=== PATIENT | female | born 1985 | race Caucasian/White ===

== ENCOUNTER 2016-11-01 08:51 | Emergency (ER) | payer OTHER ==
--- NOTE | 2016-11-01 10:17 | DIAGNOSTIC IMAGING REPORT ---
PROCEDURE: XR HAND 3 OR 4 VIEWS - RIGHT INDICATION: TRAUMA/INJURY TECHNIQUE: Four views. COMPARISON: None. FINDINGS: Osseous structures and joint spaces are normal. IMPRESSION: 1. Normal right hand.
--- NOTE | 2016-11-01 10:47 | ED CLINICAL REPORT ---
Clinical Report - Physicians/Mid Levels [facility] [address] [place] [address] 11/01/2016 8:53 Patient: HALLE GASCA Time Seen: 09:18. Arrived- By private vehicle. Historian- patient. HISTORY OF PRESENT ILLNESS Chief Complaint: Injury to the right thumb. The injury happened just prior to arrival. Occurred on a street. The patient sustained a crush injury- caught hand in door. Patient is experiencing moderate pain. Patient denies injury to the head or neck. No other injury. REVIEW OF SYSTEMS The patient sustained a laceration. She has had swelling. No tingling, numbness, weakness or foreign body. PAST HISTORY Primary physician: Fritz ([facility]) SURGERIES: Bladder . Cyst removed from head. Tubal Ligation. The patient's dominant hand is the right. Tetanus immunization status is unknown. Anxiety. Depression. SOCIAL HISTORY Smoker- current status unknown. History of drug use: marijuana. No alcohol use. ADDITIONAL NOTES The nursing notes have been reviewed. PHYSICAL EXAM Vital Signs: 11/01/2016 09:02 BP: 123/86. HR: 124. RR: 18. O2 saturation: 98%. Temp: 98 F. Pain level now: 9/10. Appearance: Alert. Anxious. Patient in moderate distress. Head: Head atraumatic. Eyes: Eyes normal inspection. No scleral icterus or pale conjunctivae. Neck: Normal inspection. Neck supple. CVS: Normal heart rate and rhythm. Heart sounds normal. Pulses normal. Respiratory: No respiratory distress. Breath sounds normal. Skin: Skin warm and dry. (right thumb abrasion and contusion). Extremities: Tip of right thumb: severe tenderness, mild swelling and superficial laceration, which involves the nail bed. No foreign body. No laceration involving nail fold, subungual hematoma, nail avulsion, exposed bone or loss of the nail bed on the right thumb. No tip amputation of the right thumb. No wrist injury. Extremities otherwise negative. Neuro, Vascular and Tendons: Vascular status intact. Sensation intact. Motor intact. Tendon function intact. Neuro: Oriented X 3. No motor deficit. LABS, X-RAYS, AND EKG Rt UE Digits X-ray: No fracture. Normal alignment. No bony lesion. Views: AP, lateral and oblique. Technique: good. The X-rays were interpreted contemporaneously by me. PROGRESS AND PROCEDURES Course of Care: Ibuprofen 400 mg PO given. Zofran 4 mg ODT PO given. Discussed closure options with pt. Nail is serving to pull wound edges together with good approximation. Pt does not want the nail removed. No fracture or fb on x-ray. Wound adhesive applied to nail to assure that nail serves as splint. Pt is currently taking antibiotics. 11/01/2016 10:52 BP: 108/70. HR: 62. RR: 18. O2 saturation: 95%. Temp: 98.4 F. Pain level now: 03/09. Patient/family counseled. Old ED records reviewed. Disposition: Discharged. Condition: stable and improved. CLINICAL IMPRESSION Abrasion to the right thumb. Crush injury to the right thumb. Chronic substance abuse- tobacco (cigarettes), marijuana with anxiety. INSTRUCTIONS Apply ice. Elevate affected areas above chest level. Wear aluminum splint until better. Limit use of your right hand until better. Do not work with hand today. Do not work for two days. Do not smoke. Seek medical help to quit smoking. Warnings: INFECTION: Watch for signs of infection (increasing heat and redness, pus-like drainage, swelling, or increased pain). Return or see your doctor if these signs occur. TETANUS: You were given a tetanus shot during your visit. Make a note for future reference. CONTROLLED SUBSTANCE WARNINGS. Further evaluation is necessary. It is very important to follow up with a physician. GENERAL WARNINGS: Return or contact your physician immediately if your condition worsens or changes unexpectedly, if not improving as expected, or if other problems arise. Your Current Medications: CONTINUE TAKING THE FOLLOWING MEDICATIONS: Cefdinir Oral : 300 mg 2x a day, Started: 10-17-2016. Xanax Oral : 0.25 mg. Zoloft Oral : 75 daily. Prescription Medications: Hydrocodone/APAP 5mg / 325mg: take 1-2 orally every 8 hours as needed for pain. Dispense ten (10). OTC Medications: Acetaminophen (available over the counter): take according to label instructions. Motrin (available over the counter): take according to label instructions. Follow-up with: [facility], , , [address], , [place], [address] Follow up in about four days. (Electronically signed by Reji Carrizales DO 11/01/2016 11:41)
--- NOTE | 2016-11-01 10:47 | ED CLINICAL REPORT ---
Clinical Report - Physicians/Mid Levels [facility] [address] [place] [address] 11/01/2016 8:53 Patient: HALLE GASCA Time Seen: 09:18. Arrived- By private vehicle. Historian- patient. HISTORY OF PRESENT ILLNESS Chief Complaint: Injury to the right thumb. The injury happened just prior to arrival. Occurred on a street. The patient sustained a crush injury- caught hand in door. Patient is experiencing moderate pain. Patient denies injury to the head or neck. No other injury. REVIEW OF SYSTEMS The patient sustained a laceration. She has had swelling. No tingling, numbness, weakness or foreign body. PAST HISTORY Primary physician: Fritz ([facility]) SURGERIES: Bladder . Cyst removed from head. Tubal Ligation. The patient's dominant hand is the right. Tetanus immunization status is unknown. Anxiety. Depression. SOCIAL HISTORY Smoker- current status unknown. History of drug use: marijuana. No alcohol use. ADDITIONAL NOTES The nursing notes have been reviewed. PHYSICAL EXAM Vital Signs: 11/01/2016 09:02 BP: 123/86. HR: 124. RR: 18. O2 saturation: 98%. Temp: 98 F. Pain level now: 9/10. Appearance: Alert. Anxious. Patient in moderate distress. Head: Head atraumatic. Eyes: Eyes normal inspection. No scleral icterus or pale conjunctivae. Neck: Normal inspection. Neck supple. CVS: Normal heart rate and rhythm. Heart sounds normal. Pulses normal. Respiratory: No respiratory distress. Breath sounds normal. Skin: Skin warm and dry. (right thumb abrasion and contusion). Extremities: Tip of right thumb: severe tenderness, mild swelling and superficial laceration, which involves the nail bed. No foreign body. No laceration involving nail fold, subungual hematoma, nail avulsion, exposed bone or loss of the nail bed on the right thumb. No tip amputation of the right thumb. No wrist injury. Extremities otherwise negative. Neuro, Vascular and Tendons: Vascular status intact. Sensation intact. Motor intact. Tendon function intact. Neuro: Oriented X 3. No motor deficit. LABS, X-RAYS, AND EKG Rt UE Digits X-ray: No fracture. Normal alignment. No bony lesion. Views: AP, lateral and oblique. Technique: good. The X-rays were interpreted contemporaneously by me. PROGRESS AND PROCEDURES Course of Care: Ibuprofen 400 mg PO given. Zofran 4 mg ODT PO given. Discussed closure options with pt. Nail is serving to pull wound edges together with good approximation. Pt does not want the nail removed. No fracture or fb on x-ray. Wound adhesive applied to nail to assure that nail serves as splint. Pt is currently taking antibiotics. 11/01/2016 10:52 BP: 108/70. HR: 62. RR: 18. O2 saturation: 95%. Temp: 98.4 F. Pain level now: 03/09. Patient/family counseled. Old ED records reviewed. Disposition: Discharged. Condition: stable and improved. CLINICAL IMPRESSION Abrasion to the right thumb. Crush injury to the right thumb. Chronic substance abuse- tobacco (cigarettes), marijuana with anxiety. INSTRUCTIONS Apply ice. Elevate affected areas above chest level. Wear aluminum splint until better. Limit use of your right hand until better. Do not work with hand today. Do not work for two days. Do not smoke. Seek medical help to quit smoking. Warnings: INFECTION: Watch for signs of infection (increasing heat and redness, pus-like drainage, swelling, or increased pain). Return or see your doctor if these signs occur. TETANUS: You were given a tetanus shot during your visit. Make a note for future reference. CONTROLLED SUBSTANCE WARNINGS. Further evaluation is necessary. It is very important to follow up with a physician. GENERAL WARNINGS: Return or contact your physician immediately if your condition worsens or changes unexpectedly, if not improving as expected, or if other problems arise. Your Current Medications: CONTINUE TAKING THE FOLLOWING MEDICATIONS: Cefdinir Oral : 300 mg 2x a day, Started: 10-17-2016. Xanax Oral : 0.25 mg. Zoloft Oral : 75 daily. Prescription Medications: Hydrocodone/APAP 5mg / 325mg: take 1-2 orally every 8 hours as needed for pain. Dispense ten (10). OTC Medications: Acetaminophen (available over the counter): take according to label instructions. Motrin (available over the counter): take according to label instructions. Follow-up with: [facility], , , [address], , [place], [address] Follow up in about four days. (Electronically signed by Reji Carrizales DO 11/01/2016 11:41)
--- NOTE | 2016-11-01 10:47 | ED ORDER SUMMARY ---
..... Patient: HALLE GASCA OrderSheet [facility] VisitID: [id number] [address] [place] [address] 31y, F Registration Date/Time: 11/01/2016 ORDER SHEET Weight: 59.4 kg (stated) Allergies: Amoxicillin, Penicillins GENERAL ORDERS: Hand 3 or 4V Right Urgent (09:24 [facility]/01/2016 [facility] (Ack 9:26 LTapper) Dress Wounds (clean and dress (tube guaze) thumb - no bacitracin; place dressing after wound adhesive) (09:50 11/01/2016 [facility]) Splint (Finger) (Right) (Thumb) (Aluminum Foam) (bend end of alumafoam splint over the end of the thumb to serve as a shield) (09:51 11/01/2016 [facility]) MEDICATION ORDERS: Ibuprofen PO 400 mg (NOW) (10:15 11/01/2016 [facility]) (Ack 10:56 SRoberts R.N.) Zofran ODT PO 4 mg (NOW) (10:15 11/01/2016 [facility]) (Ack 10:56 SRoberts R.N.) Tdap IM 0.5 mL (NOW, per protocol) (10:43 11/01/2016 [facility] (10:50 MCook R.N.) IV FLUIDS: ORDER SHEET NOTES: [Electronically signed by Errol Conley R.N. (11:25 11/01/2016)] [Electronically signed by Reji Carrizales DO (11:41 11/01/2016)] [Electronically locked/signed by Errol Conley R.N. (11:25 11/01/2016)]
--- NOTE | 2016-11-01 10:47 | ED NURSING NOTES ---
Clinical Report - Nurses [facility] [address] [place] [address] 11/01/2016 8:53 Patient: HALLE GASCA TRIAGE Triage time 09:02. Acuity: LEVEL 3. Chief Complaint: INJURY TO THE RIGHT THUMB. Alert. No acute distress. NAVID COMA SCORE: [place] Coma Scale: 15- eyes open spontaneously (4); best verbal response- oriented x 4 (5); best motor response- obeys commands (6). --09:12 Eusebia Reveles R.N. 09:02 11/01/16. BP: 123/86. HR: 124. RR: 18. O2 saturation: 98% on room air. Temp: 98 F (oral). Pain level now: 06/09. --09:12 Eusebia Reveles R.N. Weight: 59.4 kg stated. Height/Length: 64 inches Per Patient. BMI: 22.5. --09:09 Eusebia Reveles R.N. Medications Zoloft Oral 75, daily. --09:06 Eusebia Reveles R.N. Xanax Oral 0.25 mg. --09:06 Eusebia Reveles R.N. Cefdinir Oral 300 mg, 2x a day, started 10-17-2016. --09:06 Eusebia Reveles R.N. Medication/allergy information source: the patient. --09:12 Eusebia Reveles R.N. Allergies Amoxicillin. Penicillins. --09:08 Eusebia Reveles R.N. History Arrived by private vehicle. Historian: patient. Unaccompanied. Primary physician (Fritz). This occurred just prior to arrival. Mechanism of injury: a single blow (car door). PAST MEDICAL HX: Tetanus status: unknown. Last normal menstrual period- Sep 2016. SOCIAL HX: Heavy tobacco smoker- less than 1 pack per day. History of drug use: marijuana. No alcohol use. FALL RISK ASSESSMENT: Fall risk assessment completed. No fall risk identified. FUNCTIONAL ASSESSMENT: Functional assessment: no impairments noted. LEARNING NEEDS ASSESSMENT: The learning needs assessment revealed no barriers. --09:12 Eusebia Reveles R.N. PROBLEMS: Sinusitis. Depression. --09: Eusebia Reveles R.N. ADDITIONAL SURGERIES: Bladder . Cyst removed from head. Tubal Ligation. --09: Eusebia Reveles R.N. Assessment GENERAL / NEURO / PSYCH: Alert. Oriented X 4. Appears in no acute distress. Patient appears calm and cooperative. RESPIRATORY: Respirations not labored. SKIN: Skin is warm and dry. --09:12 Eusebia Reveles R.N. Interventions <<STRICKEN ENTRY-- ID band on patient. She was not taken to a treatment room. --09:12 Eusebia Reveles R.N. --END STRIKE>> Correction --09:12 Eusebia Reveles R.N. ID band on patient. To treatment room. --09:13 Eusebia Reveles R.N. PHYSICAL ASSESSMENT 09:17 11/01/16. Ambulatory to room. GENERAL / NEURO / PSYCH: Oriented X 4. Alert. Appears in no acute distress. SKIN: Skin is warm and dry. ( acrylic nail split, blood noted under tip of nail). --09:17 Esuebia Reveles R.N. NURSING PROGRESS NOTES 09:17 11/01/16. Cold pack applied. Call light placed in reach. Side rails up x 1. Bed placed in lowest position. Brakes of bed on. --09:17 Eusebia Reveles R.N. Wound cleansed with sterile saline and Hibiclens. --09:54 Errol Conley R.N. 10:49 11/01/2016 TDAP IM 0.5 mL given. (Lot#: [id number], expiration date: 11/01/2016, Senior Pharmacy Technician: sanofi pasteur). Given in the right deltoid. Allergies verified and confirmed 5 rights. Vaccine information statement provided to the patient. --10:50 Errol Conley R.N. ( Administered Tdap vaccine. Pt information sheet given. Pt tolerated well.). --10:54 Errol Conley R.N. Applied bulky dressing. Secured with tube gauze. Aluminum-foam finger splint applied to right thumb by tech. Distal pulses intact, sensation intact and motor within normal limits. --10:57 Shun Abdalla 11:00 11/01/16. Overall patient status is improved- she states feels better. GENERAL / NEURO / PSYCH: The patient reports pain that is located in the right thumb. Denies numbness or tingling. Alert. Oriented X 4. GI / : Denies nausea or vomiting. SKIN: Skin is warm and dry. --11:05 Errol Conley R.N. DISPOSITION / DISCHARGE 10:52 11/01/16. BP: 108/70. HR: 62. RR: 18. O2 saturation: 95% on room air. Temp: 98.4 F. Pain level now: 03/09. --10:53 Errol Conley R.N. Condition at departure: improved. The goals identified in the patient's plan of care were met. No learning barriers present. Discharge instructions provided and reviewed with the patient. Reviewed medication(s) side effects and precautions information. Prescription(s) given to the patient. Reviewed immunizations and splint care instructions. Reviewed need to stop smoking. Activity restrictions (minimal use of injured extremity) reviewed. Patient verbalized understanding. Written instructions provided in Fijian. The patient was discharged by the physician. She was discharged home and accompanied by shipwright helper. She left the Emergency Department ambulatory and via private vehicle. Fish Filleter driving. ( Patient ready for discharge. Stated that her ride is not here yet and that she will wait in the hospital waiting room until he comes due to report of "edible" use prior to ER admission.). --11:05 Errol Conley R.N. Departure time: 11:05 Nov 01 2016. --11:05 Errol Conley R.N. Locked/Released at 11/01/2016 11:25 by Errol Conley R.N.
--- NOTE | 2016-11-01 10:47 | ED ORDER SUMMARY ---
..... Patient: HALLE GASCA OrderSheet [facility] VisitID: [id number] [address] [place] [address] 31y, F Registration Date/Time: 11/01/2016 ORDER SHEET Weight: 59.4 kg (stated) Allergies: Amoxicillin, Penicillins GENERAL ORDERS: Hand 3 or 4V Right Urgent (09:24 11/01/2016 [facility] (Ack 9:26 LTapper) Dress Wounds (clean and dress (tube guaze) thumb - no bacitracin; place dressing after wound adhesive) (09:50 11/01/2016 [facility]) Splint (Finger) (Right) (Thumb) (Aluminum Foam) (bend end of alumafoam splint over the end of the thumb to serve as a shield) (09:51 11/01/2016 [facility]) MEDICATION ORDERS: Ibuprofen PO 400 mg (NOW) (10:15 11/01/2016 [facility]) (Ack 10:56 SRoberts R.N.) Zofran ODT PO 4 mg (NOW) (10:15 11/01/2016 [facility]) (Ack 10:56 SRoberts R.N.) Tdap IM 0.5 mL (NOW, per protocol) (10:43 11/01/2016 [facility] (10:50 MCook R.N.) IV FLUIDS: ORDER SHEET NOTES: [Electronically signed by Errol Conley R.N. (11:25 11/01/2016)] [Electronically signed by Reji Carrizales DO (11:41 11/01/2016)] [Electronically locked/signed by Errol Conley R.N. (11:25 11/01/2016)]
--- NOTE | 2016-11-01 10:47 | ED NURSING NOTES ---
Clinical Report - Nurses [facility] [address] [place] [address] 11/01/2016 8:53 Patient: HALLE GASCA TRIAGE Triage time 09:02. Acuity: LEVEL 3. Chief Complaint: INJURY TO THE RIGHT THUMB. Alert. No acute distress. NAVID COMA SCORE: [place] Coma Scale: 15- eyes open spontaneously (4); best verbal response- oriented x 4 (5); best motor response- obeys commands (6). --09:12 Eusebia Reveles R.N. 09:02 11/01/16. BP: 123/86. HR: 124. RR: 18. O2 saturation: 98% on room air. Temp: 98 F (oral). Pain level now: 06/09. --09:12 Eusebia Reveles R.N. Weight: 59.4 kg stated. Height/Length: 64 inches Per Patient. BMI: 22.5. --09:09 Eusebia Reveles R.N. Medications Zoloft Oral 75, daily. --09:06 Eusebia Reveles R.N. Xanax Oral 0.25 mg. --09:06 Eusebia Reveles R.N. Cefdinir Oral 300 mg, 2x a day, started 10-17-2016. --09:06 Eusebia Reveles R.N. Medication/allergy information source: the patient. --09:12 Eusebia Reveles R.N. Allergies Amoxicillin. Penicillins. --09:08 Eusebia Reveles R.N. History Arrived by private vehicle. Historian: patient. Unaccompanied. Primary physician (Fritz). This occurred just prior to arrival. Mechanism of injury: a single blow (car door). PAST MEDICAL HX: Tetanus status: unknown. Last normal menstrual period- Sep 2016. SOCIAL HX: Heavy tobacco smoker- less than 1 pack per day. History of drug use: marijuana. No alcohol use. FALL RISK ASSESSMENT: Fall risk assessment completed. No fall risk identified. FUNCTIONAL ASSESSMENT: Functional assessment: no impairments noted. LEARNING NEEDS ASSESSMENT: The learning needs assessment revealed no barriers. --09:12 Eusebia Reveles R.N. PROBLEMS: Sinusitis. Depression. --09: Eusebia Reveles R.N. ADDITIONAL SURGERIES: Bladder . Cyst removed from head. Tubal Ligation. --09: Eusebia Reveles R.N. Assessment GENERAL / NEURO / PSYCH: Alert. Oriented X 4. Appears in no acute distress. Patient appears calm and cooperative. RESPIRATORY: Respirations not labored. SKIN: Skin is warm and dry. --09:12 Eusebia Reveles R.N. Interventions <<STRICKEN ENTRY-- ID band on patient. She was not taken to a treatment room. --09:12 Eusebia Reveles R.N. --END STRIKE>> Correction --09:12 Eusebia Reveles R.N. ID band on patient. To treatment room. --09:13 Eusebia Reveles R.N. PHYSICAL ASSESSMENT 09:17 11/01/16. Ambulatory to room. GENERAL / NEURO / PSYCH: Oriented X 4. Alert. Appears in no acute distress. SKIN: Skin is warm and dry. ( acrylic nail split, blood noted under tip of nail). --09:17 Eusebia Reveles R.N. NURSING PROGRESS NOTES 09:17 11/01/16. Cold pack applied. Call light placed in reach. Side rails up x 1. Bed placed in lowest position. Brakes of bed on. --09:17 Eusebia Reveles R.N. Wound cleansed with sterile saline and Hibiclens. --09:54 Errol Conley R.N. 10:49 11/01/2016 TDAP IM 0.5 mL given. (Lot#: [id number], expiration date: 11/01/2016, Generator Switchboard Operator: sanofi pasteur). Given in the right deltoid. Allergies verified and confirmed 5 rights. Vaccine information statement provided to the patient. --10:50 Errol Conley R.N. ( Administered Tdap vaccine. Pt information sheet given. Pt tolerated well.). --10:54 Errol Conley R.N. Applied bulky dressing. Secured with tube gauze. Aluminum-foam finger splint applied to right thumb by tech. Distal pulses intact, sensation intact and motor within normal limits. --10:57 Shun Abdalla 11:00 11/01/16. Overall patient status is improved- she states feels better. GENERAL / NEURO / PSYCH: The patient reports pain that is located in the right thumb. Denies numbness or tingling. Alert. Oriented X 4. GI / : Denies nausea or vomiting. SKIN: Skin is warm and dry. --11:05 Errol Conley R.N. DISPOSITION / DISCHARGE 10:52 11/01/16. BP: 108/70. HR: 62. RR: 18. O2 saturation: 95% on room air. Temp: 98.4 F. Pain level now: 03/09. --10:53 Errol Conley R.N. Condition at departure: improved. The goals identified in the patient's plan of care were met. No learning barriers present. Discharge instructions provided and reviewed with the patient. Reviewed medication(s) side effects and precautions information. Prescription(s) given to the patient. Reviewed immunizations and splint care instructions. Reviewed need to stop smoking. Activity restrictions (minimal use of injured extremity) reviewed. Patient verbalized understanding. Written instructions provided in [place]. The patient was discharged by the physician. She was discharged home and accompanied by security alarm technician. She left the Emergency Department ambulatory and via private vehicle. Contact Lens Lathe Operator driving. ( Patient ready for discharge. Stated that her ride is not here yet and that she will wait in the hospital waiting room until he comes due to report of "edible" use prior to ER admission.). --11:05 Errol Conley R.N. Departure time: 11:05 Nov 01 2016. --11:05 Errol Conley R.N. Locked/Released at 11/01/2016 11:25 by Errol Conley R.N.
--- NOTE | 2016-11-01 11:41 | ED MAR SUMMARY ---
..... Medication Administration Record [facility] [address] [place] [address] Patient: HALLE GASCA Visit ID: [id number] 31y, F Weight: 59.4 kg Height/Length: 64 in BMI: 22.5 ALLERGIES: Amoxicillin, Penicillins Given 10:49 11/01/2016 Errol Conley R.N. Medication Administered: TDAP [IM], Dose: 0.5 mL IM. Medication Ordered: Tdap IM 0.5 mL (NOW, per protocol).
--- NOTE | 2016-11-01 11:41 | ED MAR SUMMARY ---
..... Medication Administration Record [facility] [address] [place] [place] [address] Patient: HALLE GASCA Visit ID: [id number] 31y, F Weight: 59.4 kg Height/Length: 64 in BMI: 22.5 ALLERGIES: Amoxicillin, Penicillins Given 10:49 11/01/2016 Errol Conley R.N. Medication Administered: TDAP [IM], Dose: 0.5 mL IM. Medication Ordered: Tdap IM 0.5 mL (NOW, per protocol).
--- NOTE | 2016-11-01 11:41 | ED MED RECONCILIATION SUMMARY ---
Patient: HALLE GASCA Medication Reconciliation Report [facility] VisitID: [id number] [address] [place] [address] 31y, F Registration Date/Time: 11/01/2016 Weight: 59.4 kg Height/Length: 64 in. BMI: 22.5 ALLERGIES: Amoxicillin, Penicillins The patient's Home Medications are listed below: CONTINUE TAKING THE FOLLOWING MEDICATIONS: Cefdinir Oral 300 mg, 2x a day Xanax Oral 0.25 mg Zoloft Oral 75, daily The source(s) of the original Home Medication information: patient The following Medications were given to the patient in the Emergency Department: TDAP [IM] IM 0.5 mL, administered: 11/01/2016 10:49:00 AM The following Medications were prescribed to the patient: Acetaminophen (available over the counter): take according to label instructions. -- Reji Carrizales DO Motrin (available over the counter): take according to label instructions. -- Reji Carrizales DO Hydrocodone/APAP 5mg / 325mg: take 1-2 orally every 8 hours as needed for pain. Dispense ten (10). -- Reji Carrizales DO
--- NOTE | 2016-11-01 11:41 | ED DISCHARGE INSTRUCTIONS ---
Patient: HALLE GASCA General Instructions [facility] VisitID: [id number] [address] [place] [address] 31y, F Registration Date/Time: 11/01/2016 Abrasion to the right thumb. Crush injury to the right thumb. Chronic substance abuse- tobacco (cigarettes), marijuana with anxiety. INSTRUCTIONS Apply ice. Elevate affected areas above chest level. Wear aluminum splint until better. Limit use of your right hand until better. Do not work with hand today. Do not work for two days. Do not smoke. Seek medical help to quit smoking. Warnings: INFECTION: Watch for signs of infection (increasing heat and redness, pus-like drainage, swelling, or increased pain). Return or see your doctor if these signs occur. TETANUS: You were given a tetanus shot during your visit. Make a note for future reference. CONTROLLED SUBSTANCE WARNINGS. Further evaluation is necessary. It is very important to follow up with a physician. GENERAL WARNINGS: Return or contact your physician immediately if your condition worsens or changes unexpectedly, if not improving as expected, or if other problems arise. Your Current Medications: CONTINUE TAKING THE FOLLOWING MEDICATIONS: Cefdinir Oral : 300 mg 2x a day, Started: 10-17-2016. Xanax Oral : 0.25 mg. Zoloft Oral : 75 daily. Prescription Medications: Hydrocodone/APAP 5mg / 325mg: take 1-2 orally every 8 hours as needed for pain. Dispense ten (10). OTC Medications: Acetaminophen (available over the counter): take according to label instructions. Motrin (available over the counter): take according to label instructions. Follow-up with: [facility], , , [address], , [place], [id number] Follow up in about four days. ADDITIONAL INFORMATION Abrasions Abrasions are skin scrapes. Their treatment depends on how large and deep the abrasion is. Home Care: If you were given a bandage, change it once a day. If your bandage sticks to the wound, soak it in warm water until it loosens. Wash the area with soap and water to remove all the cream/ointment. You may do this in a sink, under a tub faucet or shower. Rinse off the soap and pat dry with a clean towel. Reapply cream/ointment according to your doctor's instructions. This will prevent infection and help prevent the bandage from sticking. Cover the wound with a fresh non-stick bandage (Telfa). Repeat steps 1 to 4 daily, or as directed by your doctor. If the bandage becomes wet or dirty, change it as soon as possible. You may use acetaminophen (Tylenol) or ibuprofen (Motrin, Advil) to control pain, unless another pain medicine was prescribed. [ NOTE : If you have chronic liver or kidney disease or ever had a stomach ulcer or GI bleeding, talk with your doctor before using these medicines.] Do not use ibuprofen in children under six months of age. Follow Up with your physician or this facility as directed by our staff. Most skin wounds heal within ten days. However, an infection may occur despite proper treatment. Therefore, look for the early signs of infection listed below. Get Prompt Medical Attention if any of the following occur: Increasing pain in the wound Increasing redness or swelling Pus coming from the wound Fever of 100.4F (38C) or higher, or as directed by your healthcare provider Crush Injury: Hand [No Fx] You have a CRUSH INJURY of your HAND. This causes local pain, swelling and sometimes bruising. There are no broken bones. This injury may take from a few days to a few weeks to heal. If the FINGERNAIL has been severely injured, it may fall off in 1-2 weeks. A new one will usually start to grow back within a month. Home Care: Keep your hand elevated to reduce pain and swelling. When sitting or lying down elevate your arm above the level of your heart. You can do this by placing your arm on a pillow that rests on your chest or on a pillow at your side. This is most important during the first 48 hours after injury. Apply an ice pack (ice cubes in a plastic bag, wrapped in a towel) over the injured area for 20 minutes every 1-2 hours the first day for pain relief. Continue this 3-4 times a day until the pain and swelling goes away. You may use acetaminophen (Tylenol) or ibuprofen (Motrin, Advil) to control pain, unless another pain medicine was prescribed. [ NOTE : If you have chronic liver or kidney disease or ever had a stomach ulcer or GI bleeding, talk with your doctor before using these medicines.] Keep the splint/cast dry at all times. Bathe with your splint/cast well out of the water, protected with a large plastic bag, rubber-banded at the top end. If a fiberglass cast or splint gets wet, you can dry it with a hair-dryer. Follow Up with your doctor as advised if you are not starting to improve within the next THREE days. [NOTE: If X-rays were taken, they will be reviewed by a radiologist. You will be notified of any new findings that may affect your care.] Get Prompt Medical Attention if any of the following occur: The plaster cast or splint becomes wet or soft The fiberglass cast or splint remains wet for more than 24 hours Increased tightness or pain under the cast or splint Fingers become swollen, cold, blue, numb or tingly Redness, warmth, swelling, drainage from the wound, or foul odor from a cast or splint Fever of 100.4F(38C) or higher, or as directed by your healthcare provider Marijuana Abuse Marijuana is the most widely used illegal drug in the [place]. It is called by various names such as pot, weed, blunts, grass, reefer, ganja, hash, hashish. It is usually smoked but can be mixed with foods or brewed as a tea. It is sometimes sold with PCP (Víctor Dust) or amphetamine mixed in it. These drugs can cause other harmful side effects. Marijuana can cause the following effects: Changes in mood (stimulated, happy, drowsy, depressed, paranoid) Hallucinations Increased heart rate and blood pressure Increased appetite Time distortion, difficulty concentrating, impaired memory Lung damage (similar to cigarettes with chronic cough, wheezing, frequent colds and bronchitis) You can become psychologically dependent on marijuana. That means the craving to use the drug is emotional or psychological rather than due to physical withdrawal. Is Marijuana Running Your Life? Here are some of the signs: Relying on marijuana to feel good, forget problems, deal with stress or to relax Wanting to be alone most of the time or only with others who use drugs Losing interest in things that used to be important Changes in school or job performance or attendance Spending a lot of time thinking about how to get marijuana Stealing or selling your things so you can buy marijuana Unable to stop using even though you may want to quit Increasing anxiety, anger,or depression Sleeping too much, changes in eating habits (weight loss or gain) Needing to use more to get the same effect Home Care Once you have become addicted to any drug, quitting is hard to do. Most people find they can't quit without help. So, dont try to do this alone. Talk to someone you trust who can support you. Seek professional help. Avoid people and places where drugs are used. That only increases the temptation to use. Follow Up with your doctor or as advised by our staff. For more information or a referral to a treatment center in your area, contact: Your local mental health center or the National Alcohol and Substance Abuse Information Center (975)-948-0217 www.addictioncareCallApp.[employer] National [place] on Alcoholism and Drug Dependence 728-693-AVHN www.ncadd.org Marijuana Anonymous 015-565-8603 www.marijuana-anonymous.org Get Prompt Medical Attention if any of the following occur: You feel extreme depression, fear, anxiety, or anger toward yourself or others You feel out of control You feel that you may try to harm yourself or another How To Quit Smoking Smoking is one of the hardest habits to break. About half of all those who have ever smoked have been able to quit, and most of those (about 70%) who still smoke want to quit. Here are some of the best ways to stop smoking. Keep Trying: It takes most smokers about 8 tries before they are finally able to fully quit. So, the more often you try and fail, the better your chance of quitting the next time! So, don't give up! Go Cold [place]: Most ex-smokers quit cold turkey. Trying to cut back gradually doesn't seem to work as well, perhaps because it continues the smoking habit. Also, it is possible to fool yourself by inhaling more while smoking fewer cigarettes. This results in the same amount of nicotine in your body! Get Support: Support programs can make an important difference, especially for the heavy smoker. These groups offer lectures, methods to change your behavior and peer support. Call the free national Quitline for more information. 567-RXZZ-JKI (265-440-5366). Low-cost or free programs are offered by many hospitals, local chapters of the [employer] (070-802-0633) and the [employer] (855-832-6302). Support at home is important too. Non-smokers can help by offering praise and encouragement. If the smoker fails to quit, encourage them to try again! Bpcd-[id number]-[id number] Medicines: For those who can't quit on their own, Nicotine Replacement Therapy (NRT) may make quitting much easier. Certain aids such as the nicotine patch, gum and lozenge are available without a prescription. However, it is best to use these under the guidance of your doctor. The skin patch provides a steady supply of nicotine to the body. Nicotine gum and lozenge gives temporary bursts of low levels of nicotine. Both methods take the edge off the craving for cigarettes. WARNING: If you feel symptoms of nicotine overdose, such as nausea, vomiting, dizziness, weakness, or fast heartbeat, stop using these and see your doctor. Prescription Medicines: After evaluating your smoking patterns and prior attempts at quitting, your doctor may offer a prescription medicine such as bupropion (Zyban, Wellbutrin), varenicline (Chantix, Champix), a niocotine inhaler or nasal spray. Each has its unique advantage and side effects which your doctor can review with you. Health Benefits Of Quitting: The benefits of quitting start right away and keep improving the longer you go without smokin minutes: blood pressure and pulse return to normal 8 hours: oxygen levels return to normal 2 days: ability to smell and taste begins to improve as damaged nerves start to regrow 2-3 weeks: circulation and lung function improves 1-9 months: decreased cough, congestion and shortness of breath; less tired 1 year: risk of heart attack decreases by half 5 years: risk of lung cancer decreases by half; risk of stroke becomes the same as a non-smoker For information about how to quit smoking, visit the following links: National Cancer [place] , Clearing the Air, Quit Smoking Today - an online booklet. http://www.smokefree.gov/pubs/clearing_the_air.pdf Smokefree.gov http://smokefree.gov/ QuitNet http://www.quitnet.com/ Diphtheria Toxoid Adsorbed, Pertussis Vaccine, Acellular (Adsorbed), Tetanus Toxoid, Adsorbed Suspension for injection What is this medicine? DIPHTHERIA and TETANUS TOXOIDS; PERTUSSIS VACCINE (dif THEER ee uh and TET n us TOK soids; per TUS iss vak SEEN) is used to prevent diphtheria, tetanus, and pertussis infections. How should I use this medicine? This vaccine is for injection into a muscle. It is given by a health long term care social worker. A copy of Vaccine Information Statements will be given before each vaccination. Read this sheet carefully each time. The sheet may change frequently. Talk to your asphalt worker regarding the use of this vaccine in children. While the DTP vaccine may be given to children ages 6 weeks to 7 years and the Tdap vaccine may be given to children at least 10 years old, precautions do apply. What side effects may I notice from receiving this medicine? Side effects that you should report to your doctor or health long term care social worker as soon as possible: allergic reactions like skin rash, itching or hives, swelling of the face, lips, or tongue breathing problems fever of 103 degrees F or more flu-like symptoms inconsolable crying infection pain, tingling, numbness in the hands or feet seizures swelling of arm or leg that was injected unusually weak or tired Side effects that usually do not require immediate medical attention (report these side effects to your doctor or health long term care social worker if they continue or are bothersome): fussy, irritable loss of appetite fever of 102 degrees F or less pain, tenderness, redness, swelling, or a 'knot' at site where injected vomiting What may interact with this medicine? immune globulin medicines that suppress your immune function like adalimumab, anakinra, infliximab medicines to treat cancer medicines that treat or prevent blood clots like warfarin, enoxaparin, and dalteparin steroid medicines like prednisone or cortisone What if I miss a dose? It is important not to miss your dose. Call your doctor or health long term care social worker if you are unable to keep an appointment. Where should I keep my medicine? This drug is given in a hospital or clinic and will not be stored at home. What should I tell my health care provider before I take this medicine? They need to know if you have any of these conditions: blood disorders like hemophilia fever or infection immune system problems neurologic disease seizures an unusual or allergic reaction to vaccines, thimerosal, latex, other medicines, foods, dyes, or preservatives or trying to get breast-feeding What should I watch for while using this medicine? See your health care provider for all shots of this vaccine as directed. To have protection from infection, you must have 3 shots of this vaccine plus boosters as needed. Tell your doctor right away if you have any serious or unusual side effects after getting this vaccine. Hydrocodone Bitartrate, Acetaminophen Oral tablet What is this medicine? ACETAMINOPHEN; HYDROCODONE (a set a AMINTA per fen; malaika droe KOE done) is a pain reliever. It is used to treat mild to moderate pain. How should I use this medicine? Take this medicine by mouth. Swallow it with a full glass of water. Follow the directions on the prescription label. If the medicine upsets your stomach, take the medicine with food or milk. Do not take more than you are told to take. Talk to your asphalt worker regarding the use of this medicine in children. This medicine is not approved for use in children. What side effects may I notice from receiving this medicine? Side effects that you should report to your doctor or health long term care social worker as soon as possible: allergic reactions like skin rash, itching or hives, swelling of the face, lips, or tongue breathing problems confusion feeling faint or lightheaded, falls stomach pain yellowing of the eyes or skin Side effects that usually do not require medical attention (report to your doctor or health long term care social worker if they continue or are bothersome): nausea, vomiting stomach upset What may interact with this medicine? alcohol antihistamines isoniazid medicines for depression, anxiety, or psychotic disturbances medicines for sleep muscle relaxants naltrexone narcotic medicines (opiates) for pain phenobarbital ritonavir tramadol What if I miss a dose? If you miss a dose, take it as soon as you can. If it is almost time for your next dose, take only that dose. Do not take double or extra doses. Where should I keep my medicine? Keep out of the reach of children. This medicine can be abused. Keep your medicine in a safe place to protect it from theft. Do not share this medicine with anyone. Selling or giving away this medicine is dangerous and against the law. Store at room temperature between 15 and 30 degrees C (59 and 86 degrees F). Protect from light. Keep container tightly closed. Throw away any unused medicine after the expiration date. Discard unused medicine and used packaging carefully. Pets and children can be harmed if they find used or lost packages. What should I tell my health care provider before I take this medicine? They need to know if you have any of these conditions: brain tumor Crohn's disease, inflammatory bowel disease, or ulcerative colitis drink more than 3 alcohol-containing drinks per day drug abuse or addiction head injury heart or circulation problems kidney disease or problems going to the bathroom liver disease lung disease, asthma, or breathing problems an unusual or allergic reaction to acetaminophen, hydrocodone, other opioid analgesics, other medicines, foods, dyes, or preservatives or trying to get breast-feeding What should I watch for while using this medicine? Tell your doctor or health long term care social worker if your pain does not go away, if it gets worse, or if you have new or a different type of pain. You may develop tolerance to the medicine. Tolerance means that you will need a higher dose of the medicine for pain relief. Tolerance is normal and is expected if you take the medicine for a long time. Do not suddenly stop taking your medicine because you may develop a severe reaction. Your body becomes used to the medicine. This does NOT mean you are addicted. Addiction is a behavior related to getting and using a drug for a non-medical reason. If you have pain, you have a medical reason to take pain medicine. Your doctor will tell you how much medicine to take. If your doctor wants you to stop the medicine, the dose will be slowly lowered over time to avoid any side effects. You may get drowsy or dizzy when you first start taking the medicine or change doses. Do not drive, use machinery, or do anything that may be dangerous until you know how the medicine affects you. Stand or sit up slowly. There are different types of narcotic medicines (opiates) for pain. If you take more than one type at the same time, you may have more side effects. Give your health care provider a list of all medicines you use. Your doctor will tell you how much medicine to take. Do not take more medicine than directed. Call emergency for help if you have problems breathing. The medicine will cause constipation. Try to have a bowel movement at least every 2 to 3 days. If you do not have a bowel movement for 3 days, call your doctor or health long term care social worker. Too much acetaminophen can be very dangerous. Do not take Tylenol (acetaminophen) or medicines that contain acetaminophen with this medicine. Many non-prescription medicines contain acetaminophen. Always read the labels carefully. Acetaminophen Oral tablet What is this medicine? ACETAMINOPHEN (a set a AMINTA per fen) is a pain reliever. It is used to treat mild pain and fever. How should I use this medicine? Take this medicine by mouth with a glass of water. Follow the directions on the package or prescription label. Take your medicine at regular intervals. Do not take your medicine more often than directed. Talk to your asphalt worker regarding the use of this medicine in children. While this drug may be prescribed for children as young as 6 years of age for selected conditions, precautions do apply. What side effects may I notice from receiving this medicine? Side effects that you should report to your doctor or health long term care social worker as soon as possible: allergic reactions like skin rash, itching or hives, swelling of the face, lips, or tongue breathing problems fever or sore throat redness, blistering, peeling or loosening of the skin, including inside the mouth trouble passing urine or change in the amount of urine unusual bleeding or bruising unusually weak or tired yellowing of the eyes or skin Side effects that usually do not require medical attention (report to your doctor or health long term care social worker if they continue or are bothersome): headache nausea, stomach upset What may interact with this medicine? alcohol imatinib isoniazid other medicines with acetaminophen What if I miss a dose? If you miss a dose, take it as soon as you can. If it is almost time for your next dose, take only that dose. Do not take double or extra doses. Where should I keep my medicine? Keep out of reach of children. Store at room temperature between 20 and 25 degrees C (68 and 77 degrees F). Protect from moisture and heat. Throw away any unused medicine after the expiration date. What should I tell my health care provider before I take this medicine? They need to know if you have any of these conditions: if you frequently drink alcohol containing drinks liver disease an unusual or allergic reaction to acetaminophen, other medicines, foods, dyes or preservatives or trying to get breast-feeding What should I watch for while using this medicine? Tell your doctor or health long term care social worker if the pain lasts more than 10 days (5 days for children), if it gets worse, or if there is a new or different kind of pain. Also, check with your doctor if a fever lasts for more than 3 days. Do not take other medicines that contain acetaminophen with this medicine. Always read labels carefully. If you have questions, ask your doctor or pharmacist. If you take too much acetaminophen get medical help right away. Too much acetaminophen can be very dangerous and cause liver damage. Even if you do not have symptoms, it is important to get help right away. Ibuprofen Oral tablet What is this medicine? IBUPROFEN (eye BYOO proe fen) is a non-steroidal anti-inflammatory drug (NSAID). It is used for dental pain, fever, headaches or migraines, osteoarthritis, rheumatoid arthritis, or painful monthly periods. It can also relieve minor aches and pains caused by a cold, flu, or sore throat. How should I use this medicine? Take this medicine by mouth with a glass of water. Follow the directions on the prescription label. Take this medicine with food if your stomach gets upset. Try to not lie down for at least 10 minutes after you take the medicine. Take your medicine at regular intervals. Do not take your medicine more often than directed. A special MedGuide will be given to you by the pharmacist with each prescription and refill. Be sure to read this information carefully each time. Talk to your asphalt worker regarding the use of this medicine in children. Special care may be needed. What side effects may I notice from receiving this medicine? Side effects that you should report to your doctor or health long term care social worker as soon as possible: allergic reactions like skin rash, itching or hives, swelling of the face, lips, or tongue black or bloody stools, blood in the urine or in vomit breathing problems changes in vision chest pain general ill feeling or flu-like symptoms nausea or vomiting redness, blistering, peeling or loosening of the skin, including inside the mouth slurred speech or weakness on one side of the body stomach pain unexplained weight gain or swelling unusually weak or tired yellowing of eyes or skin Side effects that usually do not require medical attention (report to your doctor or health long term care social worker if they continue or are bothersome): constipation or diarrhea dizziness gas or heartburn stomach upset What may interact with this medicine? Do not take this medicine with any of the following medications: cidofovir ketorolac methotrexate pemetrexed This medicine may also interact with the following medications: alcohol aspirin diuretics lithium other drugs for inflammation like prednisone warfarin What if I miss a dose? If you miss a dose, take it as soon as you can. If it is almost time for your next dose, take only that dose. Do not take double or extra doses. Where should I keep my medicine? Keep out of the reach of children. Store at room temperature between 15 and 30 degrees C (59 and 86 degrees F). Keep container tightly closed. Throw away any unused medicine after the expiration date. What should I tell my health care provider before I take this medicine? They need to know if you have any of these conditions: asthma cigarette smoker drink more than 3 alcohol containing drinks a day heart disease or circulation problems such as heart failure or leg edema (fluid retention) high blood pressure kidney disease liver disease stomach bleeding or ulcers an unusual or allergic reaction to ibuprofen, aspirin, other NSAIDS, other medicines, foods, dyes, or preservatives or trying to get breast-feeding What should I watch for while using this medicine? Tell your doctor or healthcare professional if your symptoms do not start to get better or if they get worse. This medicine does not prevent heart attack or stroke. In fact, this medicine may increase the chance of a heart attack or stroke. The chance may increase with longer use of this medicine and in people who have heart disease. If you take aspirin to prevent heart attack or stroke, talk with your doctor or health long term care social worker. Do not take other medicines that contain aspirin, ibuprofen, or naproxen with this medicine. Side effects such as stomach upset, nausea, or ulcers may be more likely to occur. Many medicines available without a prescription should not be taken with this medicine. This medicine can cause ulcers and bleeding in the stomach and intestines at any time during treatment. Ulcers and bleeding can happen without warning symptoms and can cause . To reduce your risk, do not smoke cigarettes or drink alcohol while you are taking this medicine. You may get drowsy or dizzy. Do not drive, use machinery, or do anything that needs mental alertness until you know how this medicine affects you. Do not stand or sit up quickly, especially if you are an older patient. This reduces the risk of dizzy or fainting spells. This medicine can cause you to bleed more easily. Try to avoid damage to your teeth and gums when you brush or floss your teeth. You have been given the following additional information: Abrasion Crush Injury, Hand/Finger Marijuana Abuse Smoking Cessation Diphtheria Toxoid Adsorbed, Pertussis Vaccine, Acellular (Adsorbed), Tetanus Toxoid, Adsorbed Suspension for injection Hydrocodone Bitartrate, Acetaminophen Oral tablet Acetaminophen Oral tablet Ibuprofen Oral tablet Limit use of your right hand until better. Do not work with hand today. Do not work for two days. (Electronically signed by Reji Carrizales DO 11/01/2016 11:41)
--- NOTE | 2016-11-01 11:41 | ED DISCHARGE INSTRUCTIONS ---
Patient: HALLE GASCA General Instructions [facility] VisitID: [id number] [address] [place] [address] 31y, F Registration Date/Time: 11/01/2016 Abrasion to the right thumb. Crush injury to the right thumb. Chronic substance abuse- tobacco (cigarettes), marijuana with anxiety. INSTRUCTIONS Apply ice. Elevate affected areas above chest level. Wear aluminum splint until better. Limit use of your right hand until better. Do not work with hand today. Do not work for two days. Do not smoke. Seek medical help to quit smoking. Warnings: INFECTION: Watch for signs of infection (increasing heat and redness, pus-like drainage, swelling, or increased pain). Return or see your doctor if these signs occur. TETANUS: You were given a tetanus shot during your visit. Make a note for future reference. CONTROLLED SUBSTANCE WARNINGS. Further evaluation is necessary. It is very important to follow up with a physician. GENERAL WARNINGS: Return or contact your physician immediately if your condition worsens or changes unexpectedly, if not improving as expected, or if other problems arise. Your Current Medications: CONTINUE TAKING THE FOLLOWING MEDICATIONS: Cefdinir Oral : 300 mg 2x a day, Started: 10-17-2016. Xanax Oral : 0.25 mg. Zoloft Oral : 75 daily. Prescription Medications: Hydrocodone/APAP 5mg / 325mg: take 1-2 orally every 8 hours as needed for pain. Dispense ten (10). OTC Medications: Acetaminophen (available over the counter): take according to label instructions. Motrin (available over the counter): take according to label instructions. Follow-up with: [facility], , , [address], , [place], [address] Follow up in about four days. ADDITIONAL INFORMATION Abrasions Abrasions are skin scrapes. Their treatment depends on how large and deep the abrasion is. Home Care: If you were given a bandage, change it once a day. If your bandage sticks to the wound, soak it in warm water until it loosens. Wash the area with soap and water to remove all the cream/ointment. You may do this in a sink, under a tub faucet or shower. Rinse off the soap and pat dry with a clean towel. Reapply cream/ointment according to your doctor's instructions. This will prevent infection and help prevent the bandage from sticking. Cover the wound with a fresh non-stick bandage (Telfa). Repeat steps 1 to 4 daily, or as directed by your doctor. If the bandage becomes wet or dirty, change it as soon as possible. You may use acetaminophen (Tylenol) or ibuprofen (Motrin, Advil) to control pain, unless another pain medicine was prescribed. [ NOTE : If you have chronic liver or kidney disease or ever had a stomach ulcer or GI bleeding, talk with your doctor before using these medicines.] Do not use ibuprofen in children under six months of age. Follow Up with your physician or this facility as directed by our staff. Most skin wounds heal within ten days. However, an infection may occur despite proper treatment. Therefore, look for the early signs of infection listed below. Get Prompt Medical Attention if any of the following occur: Increasing pain in the wound Increasing redness or swelling Pus coming from the wound Fever of 100.4F (38C) or higher, or as directed by your healthcare provider Crush Injury: Hand [No Fx] You have a CRUSH INJURY of your HAND. This causes local pain, swelling and sometimes bruising. There are no broken bones. This injury may take from a few days to a few weeks to heal. If the FINGERNAIL has been severely injured, it may fall off in 1-2 weeks. A new one will usually start to grow back within a month. Home Care: Keep your hand elevated to reduce pain and swelling. When sitting or lying down elevate your arm above the level of your heart. You can do this by placing your arm on a pillow that rests on your chest or on a pillow at your side. This is most important during the first 48 hours after injury. Apply an ice pack (ice cubes in a plastic bag, wrapped in a towel) over the injured area for 20 minutes every 1-2 hours the first day for pain relief. Continue this 3-4 times a day until the pain and swelling goes away. You may use acetaminophen (Tylenol) or ibuprofen (Motrin, Advil) to control pain, unless another pain medicine was prescribed. [ NOTE : If you have chronic liver or kidney disease or ever had a stomach ulcer or GI bleeding, talk with your doctor before using these medicines.] Keep the splint/cast dry at all times. Bathe with your splint/cast well out of the water, protected with a large plastic bag, rubber-banded at the top end. If a fiberglass cast or splint gets wet, you can dry it with a hair-dryer. Follow Up with your doctor as advised if you are not starting to improve within the next THREE days. [NOTE: If X-rays were taken, they will be reviewed by a radiologist. You will be notified of any new findings that may affect your care.] Get Prompt Medical Attention if any of the following occur: The plaster cast or splint becomes wet or soft The fiberglass cast or splint remains wet for more than 24 hours Increased tightness or pain under the cast or splint Fingers become swollen, cold, blue, numb or tingly Redness, warmth, swelling, drainage from the wound, or foul odor from a cast or splint Fever of 100.4F(38C) or higher, or as directed by your healthcare provider Marijuana Abuse Marijuana is the most widely used illegal drug in the [place]. It is called by various names such as pot, weed, blunts, grass, reefer, ganja, hash, hashish. It is usually smoked but can be mixed with foods or brewed as a tea. It is sometimes sold with PCP (Víctor Dust) or amphetamine mixed in it. These drugs can cause other harmful side effects. Marijuana can cause the following effects: Changes in mood (stimulated, happy, drowsy, depressed, paranoid) Hallucinations Increased heart rate and blood pressure Increased appetite Time distortion, difficulty concentrating, impaired memory Lung damage (similar to cigarettes with chronic cough, wheezing, frequent colds and bronchitis) You can become psychologically dependent on marijuana. That means the craving to use the drug is emotional or psychological rather than due to physical withdrawal. Is Marijuana Running Your Life? Here are some of the signs: Relying on marijuana to feel good, forget problems, deal with stress or to relax Wanting to be alone most of the time or only with others who use drugs Losing interest in things that used to be important Changes in school or job performance or attendance Spending a lot of time thinking about how to get marijuana Stealing or selling your things so you can buy marijuana Unable to stop using even though you may want to quit Increasing anxiety, anger,or depression Sleeping too much, changes in eating habits (weight loss or gain) Needing to use more to get the same effect Home Care Once you have become addicted to any drug, quitting is hard to do. Most people find they can't quit without help. So, dont try to do this alone. Talk to someone you trust who can support you. Seek professional help. Avoid people and places where drugs are used. That only increases the temptation to use. Follow Up with your doctor or as advised by our staff. For more information or a referral to a treatment center in your area, contact: Your local mental health center or the National Alcohol and Substance Abuse Information Center (661)-506-8297 www.addictioncareThat{img}.[employer] National [employer] on Alcoholism and Drug Dependence 855-981-LVPH www.ncadd.org Marijuana Anonymous 476-409-7064 www.marijuana-anonymous.org Get Prompt Medical Attention if any of the following occur: You feel extreme depression, fear, anxiety, or anger toward yourself or others You feel out of control You feel that you may try to harm yourself or another How To Quit Smoking Smoking is one of the hardest habits to break. About half of all those who have ever smoked have been able to quit, and most of those (about 70%) who still smoke want to quit. Here are some of the best ways to stop smoking. Keep Trying: It takes most smokers about 8 tries before they are finally able to fully quit. So, the more often you try and fail, the better your chance of quitting the next time! So, don't give up! Go Cold Harmony: Most ex-smokers quit cold turkey. Trying to cut back gradually doesn't seem to work as well, perhaps because it continues the smoking habit. Also, it is possible to fool yourself by inhaling more while smoking fewer cigarettes. This results in the same amount of nicotine in your body! Get Support: Support programs can make an important difference, especially for the heavy smoker. These groups offer lectures, methods to change your behavior and peer support. Call the free national Quitline for more information. 468-PPIW-YTV (093-707-0318). Low-cost or free programs are offered by many hospitals, local chapters of the [place] [employer] (180-699-4866) and the [place] [employer] (903-634-6972). Support at home is important too. Non-smokers can help by offering praise and encouragement. If the smoker fails to quit, encourage them to try again! Ulxo-Cys-Qrpibat Medicines: For those who can't quit on their own, Nicotine Replacement Therapy (NRT) may make quitting much easier. Certain aids such as the nicotine patch, gum and lozenge are available without a prescription. However, it is best to use these under the guidance of your doctor. The skin patch provides a steady supply of nicotine to the body. Nicotine gum and lozenge gives temporary bursts of low levels of nicotine. Both methods take the edge off the craving for cigarettes. WARNING: If you feel symptoms of nicotine overdose, such as nausea, vomiting, dizziness, weakness, or fast heartbeat, stop using these and see your doctor. Prescription Medicines: After evaluating your smoking patterns and prior attempts at quitting, your doctor may offer a prescription medicine such as bupropion (Zyban, Wellbutrin), varenicline (Chantix, Champix), a niocotine inhaler or nasal spray. Each has its unique advantage and side effects which your doctor can review with you. Health Benefits Of Quitting: The benefits of quitting start right away and keep improving the longer you go without smokin minutes: blood pressure and pulse return to normal 8 hours: oxygen levels return to normal 2 days: ability to smell and taste begins to improve as damaged nerves start to regrow 2-3 weeks: circulation and lung function improves 1-9 months: decreased cough, congestion and shortness of breath; less tired 1 year: risk of heart attack decreases by half 5 years: risk of lung cancer decreases by half; risk of stroke becomes the same as a non-smoker For information about how to quit smoking, visit the following links: National Cancer [place] , Clearing the Air, Quit Smoking Today - an online booklet. http://www.smokefree.gov/pubs/clearing_the_air.pdf Smokefree.gov http://smokefree.gov/ QuitNet http://www.quitnet.com/ Diphtheria Toxoid Adsorbed, Pertussis Vaccine, Acellular (Adsorbed), Tetanus Toxoid, Adsorbed Suspension for injection What is this medicine? DIPHTHERIA and TETANUS TOXOIDS; PERTUSSIS VACCINE (dif THEER ee uh and TET n us TOK soids; per TUS iss vak SEEN) is used to prevent diphtheria, tetanus, and pertussis infections. How should I use this medicine? This vaccine is for injection into a muscle. It is given by a health child care leader. A copy of Vaccine Information Statements will be given before each vaccination. Read this sheet carefully each time. The sheet may change frequently. Talk to your typewriter assembly and parts inspector regarding the use of this vaccine in children. While the DTP vaccine may be given to children ages 6 weeks to 7 years and the Tdap vaccine may be given to children at least 10 years old, precautions do apply. What side effects may I notice from receiving this medicine? Side effects that you should report to your doctor or health child care leader as soon as possible: allergic reactions like skin rash, itching or hives, swelling of the face, lips, or tongue breathing problems fever of 103 degrees F or more flu-like symptoms inconsolable crying infection pain, tingling, numbness in the hands or feet seizures swelling of arm or leg that was injected unusually weak or tired Side effects that usually do not require immediate medical attention (report these side effects to your doctor or health child care leader if they continue or are bothersome): fussy, irritable loss of appetite fever of 102 degrees F or less pain, tenderness, redness, swelling, or a 'knot' at site where injected vomiting What may interact with this medicine? immune globulin medicines that suppress your immune function like adalimumab, anakinra, infliximab medicines to treat cancer medicines that treat or prevent blood clots like warfarin, enoxaparin, and dalteparin steroid medicines like prednisone or cortisone What if I miss a dose? It is important not to miss your dose. Call your doctor or health child care leader if you are unable to keep an appointment. Where should I keep my medicine? This drug is given in a hospital or clinic and will not be stored at home. What should I tell my health care provider before I take this medicine? They need to know if you have any of these conditions: blood disorders like hemophilia fever or infection immune system problems neurologic disease seizures an unusual or allergic reaction to vaccines, thimerosal, latex, other medicines, foods, dyes, or preservatives or trying to get breast-feeding What should I watch for while using this medicine? See your health care provider for all shots of this vaccine as directed. To have protection from infection, you must have 3 shots of this vaccine plus boosters as needed. Tell your doctor right away if you have any serious or unusual side effects after getting this vaccine. Hydrocodone Bitartrate, Acetaminophen Oral tablet What is this medicine? ACETAMINOPHEN; HYDROCODONE (a set a AMINTA per fen; malaika droe KOE done) is a pain reliever. It is used to treat mild to moderate pain. How should I use this medicine? Take this medicine by mouth. Swallow it with a full glass of water. Follow the directions on the prescription label. If the medicine upsets your stomach, take the medicine with food or milk. Do not take more than you are told to take. Talk to your typewriter assembly and parts inspector regarding the use of this medicine in children. This medicine is not approved for use in children. What side effects may I notice from receiving this medicine? Side effects that you should report to your doctor or health child care leader as soon as possible: allergic reactions like skin rash, itching or hives, swelling of the face, lips, or tongue breathing problems confusion feeling faint or lightheaded, falls stomach pain yellowing of the eyes or skin Side effects that usually do not require medical attention (report to your doctor or health child care leader if they continue or are bothersome): nausea, vomiting stomach upset What may interact with this medicine? alcohol antihistamines isoniazid medicines for depression, anxiety, or psychotic disturbances medicines for sleep muscle relaxants naltrexone narcotic medicines (opiates) for pain phenobarbital ritonavir tramadol What if I miss a dose? If you miss a dose, take it as soon as you can. If it is almost time for your next dose, take only that dose. Do not take double or extra doses. Where should I keep my medicine? Keep out of the reach of children. This medicine can be abused. Keep your medicine in a safe place to protect it from theft. Do not share this medicine with anyone. Selling or giving away this medicine is dangerous and against the law. Store at room temperature between 15 and 30 degrees C (59 and 86 degrees F). Protect from light. Keep container tightly closed. Throw away any unused medicine after the expiration date. Discard unused medicine and used packaging carefully. Pets and children can be harmed if they find used or lost packages. What should I tell my health care provider before I take this medicine? They need to know if you have any of these conditions: brain tumor Crohn's disease, inflammatory bowel disease, or ulcerative colitis drink more than 3 alcohol-containing drinks per day drug abuse or addiction head injury heart or circulation problems kidney disease or problems going to the bathroom liver disease lung disease, asthma, or breathing problems an unusual or allergic reaction to acetaminophen, hydrocodone, other opioid analgesics, other medicines, foods, dyes, or preservatives or trying to get breast-feeding What should I watch for while using this medicine? Tell your doctor or health child care leader if your pain does not go away, if it gets worse, or if you have new or a different type of pain. You may develop tolerance to the medicine. Tolerance means that you will need a higher dose of the medicine for pain relief. Tolerance is normal and is expected if you take the medicine for a long time. Do not suddenly stop taking your medicine because you may develop a severe reaction. Your body becomes used to the medicine. This does NOT mean you are addicted. Addiction is a behavior related to getting and using a drug for a non-medical reason. If you have pain, you have a medical reason to take pain medicine. Your doctor will tell you how much medicine to take. If your doctor wants you to stop the medicine, the dose will be slowly lowered over time to avoid any side effects. You may get drowsy or dizzy when you first start taking the medicine or change doses. Do not drive, use machinery, or do anything that may be dangerous until you know how the medicine affects you. Stand or sit up slowly. There are different types of narcotic medicines (opiates) for pain. If you take more than one type at the same time, you may have more side effects. Give your health care provider a list of all medicines you use. Your doctor will tell you how much medicine to take. Do not take more medicine than directed. Call emergency for help if you have problems breathing. The medicine will cause constipation. Try to have a bowel movement at least every 2 to 3 days. If you do not have a bowel movement for 3 days, call your doctor or health child care leader. Too much acetaminophen can be very dangerous. Do not take Tylenol (acetaminophen) or medicines that contain acetaminophen with this medicine. Many non-prescription medicines contain acetaminophen. Always read the labels carefully. Acetaminophen Oral tablet What is this medicine? ACETAMINOPHEN (a set a AMINTA per fen) is a pain reliever. It is used to treat mild pain and fever. How should I use this medicine? Take this medicine by mouth with a glass of water. Follow the directions on the package or prescription label. Take your medicine at regular intervals. Do not take your medicine more often than directed. Talk to your typewriter assembly and parts inspector regarding the use of this medicine in children. While this drug may be prescribed for children as young as 6 years of age for selected conditions, precautions do apply. What side effects may I notice from receiving this medicine? Side effects that you should report to your doctor or health child care leader as soon as possible: allergic reactions like skin rash, itching or hives, swelling of the face, lips, or tongue breathing problems fever or sore throat redness, blistering, peeling or loosening of the skin, including inside the mouth trouble passing urine or change in the amount of urine unusual bleeding or bruising unusually weak or tired yellowing of the eyes or skin Side effects that usually do not require medical attention (report to your doctor or health child care leader if they continue or are bothersome): headache nausea, stomach upset What may interact with this medicine? alcohol imatinib isoniazid other medicines with acetaminophen What if I miss a dose? If you miss a dose, take it as soon as you can. If it is almost time for your next dose, take only that dose. Do not take double or extra doses. Where should I keep my medicine? Keep out of reach of children. Store at room temperature between 20 and 25 degrees C (68 and 77 degrees F). Protect from moisture and heat. Throw away any unused medicine after the expiration date. What should I tell my health care provider before I take this medicine? They need to know if you have any of these conditions: if you frequently drink alcohol containing drinks liver disease an unusual or allergic reaction to acetaminophen, other medicines, foods, dyes or preservatives or trying to get breast-feeding What should I watch for while using this medicine? Tell your doctor or health child care leader if the pain lasts more than 10 days (5 days for children), if it gets worse, or if there is a new or different kind of pain. Also, check with your doctor if a fever lasts for more than 3 days. Do not take other medicines that contain acetaminophen with this medicine. Always read labels carefully. If you have questions, ask your doctor or pharmacist. If you take too much acetaminophen get medical help right away. Too much acetaminophen can be very dangerous and cause liver damage. Even if you do not have symptoms, it is important to get help right away. Ibuprofen Oral tablet What is this medicine? IBUPROFEN (eye BYOO proe fen) is a non-steroidal anti-inflammatory drug (NSAID). It is used for dental pain, fever, headaches or migraines, osteoarthritis, rheumatoid arthritis, or painful monthly periods. It can also relieve minor aches and pains caused by a cold, flu, or sore throat. How should I use this medicine? Take this medicine by mouth with a glass of water. Follow the directions on the prescription label. Take this medicine with food if your stomach gets upset. Try to not lie down for at least 10 minutes after you take the medicine. Take your medicine at regular intervals. Do not take your medicine more often than directed. A special MedGuide will be given to you by the pharmacist with each prescription and refill. Be sure to read this information carefully each time. Talk to your typewriter assembly and parts inspector regarding the use of this medicine in children. Special care may be needed. What side effects may I notice from receiving this medicine? Side effects that you should report to your doctor or health child care leader as soon as possible: allergic reactions like skin rash, itching or hives, swelling of the face, lips, or tongue black or bloody stools, blood in the urine or in vomit breathing problems changes in vision chest pain general ill feeling or flu-like symptoms nausea or vomiting redness, blistering, peeling or loosening of the skin, including inside the mouth slurred speech or weakness on one side of the body stomach pain unexplained weight gain or swelling unusually weak or tired yellowing of eyes or skin Side effects that usually do not require medical attention (report to your doctor or health child care leader if they continue or are bothersome): constipation or diarrhea dizziness gas or heartburn stomach upset What may interact with this medicine? Do not take this medicine with any of the following medications: cidofovir ketorolac methotrexate pemetrexed This medicine may also interact with the following medications: alcohol aspirin diuretics lithium other drugs for inflammation like prednisone warfarin What if I miss a dose? If you miss a dose, take it as soon as you can. If it is almost time for your next dose, take only that dose. Do not take double or extra doses. Where should I keep my medicine? Keep out of the reach of children. Store at room temperature between 15 and 30 degrees C (59 and 86 degrees F). Keep container tightly closed. Throw away any unused medicine after the expiration date. What should I tell my health care provider before I take this medicine? They need to know if you have any of these conditions: asthma cigarette smoker drink more than 3 alcohol containing drinks a day heart disease or circulation problems such as heart failure or leg edema (fluid retention) high blood pressure kidney disease liver disease stomach bleeding or ulcers an unusual or allergic reaction to ibuprofen, aspirin, other NSAIDS, other medicines, foods, dyes, or preservatives or trying to get breast-feeding What should I watch for while using this medicine? Tell your doctor or healthcare professional if your symptoms do not start to get better or if they get worse. This medicine does not prevent heart attack or stroke. In fact, this medicine may increase the chance of a heart attack or stroke. The chance may increase with longer use of this medicine and in people who have heart disease. If you take aspirin to prevent heart attack or stroke, talk with your doctor or health child care leader. Do not take other medicines that contain aspirin, ibuprofen, or naproxen with this medicine. Side effects such as stomach upset, nausea, or ulcers may be more likely to occur. Many medicines available without a prescription should not be taken with this medicine. This medicine can cause ulcers and bleeding in the stomach and intestines at any time during treatment. Ulcers and bleeding can happen without warning symptoms and can cause . To reduce your risk, do not smoke cigarettes or drink alcohol while you are taking this medicine. You may get drowsy or dizzy. Do not drive, use machinery, or do anything that needs mental alertness until you know how this medicine affects you. Do not stand or sit up quickly, especially if you are an older patient. This reduces the risk of dizzy or fainting spells. This medicine can cause you to bleed more easily. Try to avoid damage to your teeth and gums when you brush or floss your teeth. You have been given the following additional information: Abrasion Crush Injury, Hand/Finger Marijuana Abuse Smoking Cessation Diphtheria Toxoid Adsorbed, Pertussis Vaccine, Acellular (Adsorbed), Tetanus Toxoid, Adsorbed Suspension for injection Hydrocodone Bitartrate, Acetaminophen Oral tablet Acetaminophen Oral tablet Ibuprofen Oral tablet Limit use of your right hand until better. Do not work with hand today. Do not work for two days. (Electronically signed by Reji Carrizales DO 11/01/2016 11:41)
--- NOTE | 2016-11-01 11:41 | ED MED RECONCILIATION SUMMARY ---
Patient: HALLE GASCA Medication Reconciliation Report [facility] VisitID: [id number] [address] [place] [place] [address] 31y, F Registration Date/Time: 11/01/2016 Weight: 59.4 kg Height/Length: 64 in. BMI: 22.5 ALLERGIES: Amoxicillin, Penicillins The patient's Home Medications are listed below: CONTINUE TAKING THE FOLLOWING MEDICATIONS: Cefdinir Oral 300 mg, 2x a day Xanax Oral 0.25 mg Zoloft Oral 75, daily The source(s) of the original Home Medication information: patient The following Medications were given to the patient in the Emergency Department: TDAP [IM] IM 0.5 mL, administered: 11/01/2016 10:49:00 AM The following Medications were prescribed to the patient: Acetaminophen (available over the counter): take according to label instructions. -- Reji Carrizales DO Motrin (available over the counter): take according to label instructions. -- Reji Carrizales DO Hydrocodone/APAP 5mg / 325mg: take 1-2 orally every 8 hours as needed for pain. Dispense ten (10). -- Reji Carrizales DO
== END 2016-11-01 11:00 | disposition home or self-care (01) ==
LOC: ED SRH 08:51
DX: S60.311A Abrasion of right thumb, initial encounter (principal); S67.01XA Crushing injury of right thumb, initial encounter; W23.0XXA Caught, crushed, jammed, or pinched between moving objects, initial encounter; Y92.410 Unspecified street and highway as the place of occurrence of the external cause; Y93.9 Activity, unspecified; Y99.9 Unspecified external cause status; Z23 Encounter for immunization; F17.200 Nicotine dependence, unspecified, uncomplicated